=== PATIENT | male | born 1980 | race Two or more races ===

== ENCOUNTER 2022-02-18 08:30 | Inpatient (IN) | payer OTHER ==
[~2022-02-18] VITALS: Ht 167.6 cm; Wt 124.7 kg
[2022-02-18] MEDS ORDERED: [UNRECOGNIZED DRUG - OTHER] PO (10:39)
[2022-02-18] MEDS ORDERED: ATORVASTATIN CA10 MG PO (10:40)
[2022-02-18] MEDS ORDERED: COZAAR50 MG PO (10:40)
[2022-02-18] MEDS ORDERED: ADULT LOW DOSE81 M1 PO (10:40)
[2022-02-18] MEDS ORDERED: CATAFLAN PO (10:41)
[2022-02-18] MEDS ORDERED: AMIODARONE HCL100 MG PO (13:13)
[2022-02-22] MEDS ORDERED: FLONASE16 GM (13:56)
[2022-02-22] MEDS ORDERED: AMIODARONE HCL200 MG (13:56)
[2022-02-24] MEDS ORDERED: ELIQUIS2.5 MG PO (16:16)
[2022-02-24] MEDS ORDERED: DUI500 PO (16:16)
[2022-02-24] MEDS ORDERED: PERCOCET 5-3251 EACH PO (16:16)
== END 2022-02-24 18:03 | DRG 470 ==
LOC: O/R 02-22 05:15 → SURG 02-22 08:30
PROVIDERS: ADMIT Orthopaedic Surgery; ATTEND Orthopaedic Surgery
PROC: 0SRB01Z Replacement of Left Hip Joint with Metal Synthetic Substitute, Open Approach (ICD-10-PCS; principal; 2022-02-22 10:30)
DX: M16.12 Unilateral primary osteoarthritis, left hip (principal); M87.052 Idiopathic aseptic necrosis of left femur; D62 Acute posthemorrhagic anemia; M25.562 Pain in left knee; Z20.822 Contact with and (suspected) exposure to COVID-19

== ENCOUNTER 2022-07-08 08:15 | Inpatient (IN) | payer OTHER ==
[~2022-07-08] VITALS: Ht 167.6 cm; Wt 115.7 kg
[~2022-07-08 08:15] MED LIST: ADULT LOW DOSE81 M1 PO; AMIODARONE HCL100 MG PO; AMIODARONE HCL200 MG; ATORVASTATIN CA10 MG PO; CATAFLAN PO; COZAAR50 MG PO; DUI500 PO; ELIQUIS2.5 MG PO; FLONASE16 GM; PERCOCET 5-3251 EACH PO; [UNRECOGNIZED DRUG - OTHER] PO
[2022-07-08] MEDS ORDERED: ADULT LOW DOSE81 M1 PO (09:44)
[2022-07-12] MEDS ORDERED: FAMOTIDINE20 MG (08:16)
[2022-07-15] MEDS ORDERED: ELIQUIS2.5 MG PO (08:02)
[2022-07-15] MEDS ORDERED: DUI500 PO (08:02)
[2022-07-15] MEDS ORDERED: PERCOCET 5-3251 EACH PO (08:02)
== END 2022-07-15 17:16 | DRG 470 ==
LOC: O/R 07-12 05:45 → SURG 07-12 05:45
PROVIDERS: ADMIT Orthopaedic Surgery; ATTEND Orthopaedic Surgery
PROC: 0SR90JZ Replacement of Right Hip Joint with Synthetic Substitute, Open Approach (ICD-10-PCS; principal; 2022-07-12 15:15)
PROC: 4A12X4Z Monitoring of Cardiac Electrical Activity, External Approach (ICD-10-PCS; 2022-07-14)
DX: M16.11 Unilateral primary osteoarthritis, right hip (principal); M25.751 Osteophyte, right hip; M70.61 Trochanteric bursitis, right hip; I10 Essential (primary) hypertension; I48.91 Unspecified atrial fibrillation; E66.01 Morbid (severe) obesity due to excess calories; Z96.641 Presence of right artificial hip joint; Z20.822 Contact with and (suspected) exposure to COVID-19